=== PATIENT | female | born 2000 | race Caucasian/White ===

== ENCOUNTER 2022-09-06 00:51 | Emergency (ER) | payer OTHER ==
[~2022-09-06] VITALS: Ht 160 cm; Wt 111.1 kg
[2022-09-06] MEDS ORDERED: HYDR-501 PO (01:12)
--- NOTE | 2022-09-06 01:16 | NUR ---
Dr Pro at bedside MSE in progress
[2022-09-06] MEDS ORDERED: LORAZEPAM 0.5 MG TABLET PO ONE (01:30)
[2022-09-06] MEDS ORDERED: LORAZEPAM 1 MG TABLET ONE (01:30)
[2022-09-06 01:43] LABS: HEMATOCRIT 30.6 % (31.2-41.9); MEAN CORPUSCULAR VOLUME 67.2 fL (75.5-95.3); PLATELET COUNT (AUTO) 273 K/uL (179-408)
[2022-09-06 01:57] LABS: CREATININE 0.8 mg/dL (0.6-1.3); MAGNESIUM 1.7 mg/dL (1.8-2.4); POTASSIUM 3.9 mmol/L (3.5-5.1)
[2022-09-06 02:16] LABS: IRON, SERUM 21 ug/dL (50-175)
[2022-09-06] MEDS ORDERED: BLOO-1730 MC (02:33)
--- NOTE | 2022-09-06 02:38 | NUR ---
Patient discharged to home in stable condition. Written and verbal after care instructions given. Patient verbalizes understanding of instructions. Stressed follow up or return to ER for worsening s/s. Patient is a/ox4, NAD noted, patient ambulated with steady gait
[2022-09-06 02:39] VITALS: BP 125/76
== END 2022-09-06 02:40 | disposition home or self-care (01) ==
LOC: ER 00:59
DX: L50.9 Urticaria, unspecified (principal); M13.80 Other specified arthritis, unspecified site; R73.03 Prediabetes; D50.9 Iron deficiency anemia, unspecified; Z79.899 Other long term (current) drug therapy
CPT/HCPCS: 36415; 70030-TC; 83550; 83735; 85025; 85651; 93005; A4663